=== PATIENT | male | born 1995 | race Caucasian/White ===

== ENCOUNTER 2016-10-23 18:34 | Emergency (ER) | payer BC, MEDICAID, MEDICARE ==
[2016-10-23 18:48] VITALS: BP 127/73
--- NOTE | 2016-10-23 19:02 | ED Physician Chart ---
Chief Complaint/HPI - Patient Information Date Seen:: 10/23/16 Time Seen:: 18:57 Chief Complaint:: anxiety History of Present Illness:: pt says he thinks he got himself worked up ..was upset after contemplating a mathematical equation for school(trying to reconcile arguments into math). he now feels anxious and feels heart rate elevated. no cp. no sob. no MCKEON. no neuro changes. he has felt tingly around face and hands. no weakness. no incoordination. pt admits he drank a red bull at 10am. he also says he smoked some mj earlier. denies other drug use. denies any obv reason for dehydration. denies etoh use. pt has had anxiety in past and thinks this is a panic attack but has not been fomally dxd w this. not on any meds. there is no personal or fam hx of congenital hrt dz. pt has allergy hx and asthma hx but no recent flare up. Allergies:: Allergies Allergy/AdvReac Type Severity Reaction Status Date / Time No Known Allergies Allergy Verified 10/23/16 18:48 Vitals:: Vital Signs - 8 hr 10/23/16 10/23/16 18:48 18:49 Temp 98.3 F HR 125 RR 17 BP 127/73 127/73 O2 Sat % 97 Historian:: Patient Review of Systems - Review of Systems General/Constitutional: No fever, No chills, No weight loss, No weakness, No diaphoresis, No edema, No loss of appetite Skin: No skin lesions, No rash, No bruising Head: No headache, No light-headedness Eyes: No loss of vision, No pain, No diplopia ENT: No earache, No nasal drainage, No sore throat, No tinnitus Neck: No neck pain, No swelling, No thyromegaly, No stiffness, No mass noted Cardio Vascular: No chest pain, Palpitations (rapid hrt rate), No PND, No orthopnea, No edema Pulmonary: No SOB, No cough, No sputum, No wheezing GI: No nausea, No vomiting, No diarrhea, No pain, No melena, No hematochezia, No constipation, No hematemesis G/U: No dysuria, No frequency, No hematuria Musculoskeletal: No bone or joint pain, No back pain, No muscle pain Endocrine: No polyuria, No polydipsia Psychiatric: No prior psych history, No depression, Anxiety, No suicidal ideation Hematopoietic: No bruising, No lymphadenopathy Allergic/Immuno: No urticaria, No angioedema Neurological: No syncope, No focal symptoms, No weakness, No paresthesia, No headache, No seizure, No dizziness, No confusion, No vertigo Past Medical History - Past Medical History Past Medical History: Asthma/COPD Social History: Illicit Drug Use (mj) Medication: None Family Medical History - Family Member Mother Hx Family Cancer: No Hx Family Congestive Heart Failure: No Hx Family Stroke: No Hx Family Diabetes: No Hx Family Seizures: No Hx Family HIV: No Hx Family Hepatitis: No Physical Exam - Physical Examination General/Constitutional: Awake, Well-developed, well-nourished, Alert, No distress, GCS 15, Non-toxic appearing, Ambulatory Other Gen/Cons comments:: pt seems anxious. no sob. nrml neuro status. electronic device monitor shows sinus tach w 115-130 rate. Head: Atraumatic Eyes: Lids, conjuctiva normal, PERRL, EOMI Skin: Nl inspection, No rash, No skin lesions, No ecchymosis, Well hydrated, No lymphadenopathy ENMT: External ears, nose nl, Nasal exam nl, Lips, teeth, gums nl Neck: Nontender, Full ROM w/o pain, No JVD, No nuchal rigidity, No bruit, No mass, No stridor Respiratory: Nl effort/Exclusion, Clear to Auscultation, No Wheeze/Rhonchi/Rales Cardio Vascular: RRR, No murmur, gallop, rubs, NL S1 S2 GI: No tenderness/rebounding/guarding, No organomegaly, No hernia, Normal BS's, Nondistended, No mass/bruits, No McBurney tenderness : No CVA tenderness Extremities: No tenderness or effusion, Full ROM, normal strength in all extremities, No edema, Normal digits & nails Neuro/Psych: Alert/oriented, DTR's symmetric, Normal sensory exam, Normal motor strength, Judgement/insight normal, Mood normal, Normal gait, No focal deficits Other Neuro/Psych comments:: nrml str/sens x 4 extr. cn 2-12 wnl. tm''s cl b. Misc: normal gait, Normal back, No paraspinal tenderness Labs/Radiology/EKG Results - Lab Results Results: Laboratory Tests 10/23/16 10/23/16 10/23/16 19:12 19:12 19:12 WBC 11.8 H RBC 5.51 Hgb 16.3 Hct 47.1 MCV 85.5 MCH 29.5 MCHC Differential 34.5 RDW 11.8 Plt Count 207 MPV 8.7 Neutrophils % 86.7 H Lymphocytes % 6.6 L Monocytes % 5.8 Eosinophils % 0.3 Basophils % 0.6 Sodium 137 Potassium 3.5 Chloride 103 Carbon Dioxide 25.3 Anion Gap 12.2 BUN 11 Creatinine 1.2 Est GFR ( Amer) > 60.0 Est GFR (Non-Af Amer) > 60.0 BUN/Creatinine Ratio 9.2 Glucose 139 H Calcium 9.7 Total Bilirubin 0.6 AST 23 ALT 33 Alkaline Phosphatase 50 Troponin I < 0.01 L Total Protein 7.6 Albumin 4.7 Globulin 2.9 Albumin/Globulin Ratio 1.6 Urine Opiates Screen Urine Methadone Screen Ur Barbiturates Screen Ur Tricyclics Screen Ur Phencyclidine Scrn Amphetamines Screen U Methamphetamines Scrn U Benzodiazepines Scrn U Cocaine Metab Screen U Cannabinoids Screen 10/23/16 19:25 WBC RBC Hgb Hct MCV MCH MCHC Differential RDW Plt Count MPV Neutrophils % Lymphocytes % Monocytes % Eosinophils % Basophils % Sodium Potassium Chloride Carbon Dioxide Anion Gap BUN Creatinine Est GFR ( Amer) Est GFR (Non-Af Amer) BUN/Creatinine Ratio Glucose Calcium Total Bilirubin AST ALT Alkaline Phosphatase Troponin I Total Protein Albumin Globulin Albumin/Globulin Ratio Urine Opiates Screen NEGATIVE Urine Methadone Screen NEGATIVE Ur Barbiturates Screen NEGATIVE Ur Tricyclics Screen NEGATIVE Ur Phencyclidine Scrn NEGATIVE Amphetamines Screen NEGATIVE U Methamphetamines Scrn NEGATIVE U Benzodiazepines Scrn NEGATIVE U Cocaine Metab Screen NEGATIVE U Cannabinoids Screen POSITIVE H - EKG Interpretations EKG Time:: 19:10 Rate & Rhythm: nsr- mild tachy at 108 bpm [place]: -47 Intervals: [id number] Comments:: overall mild tach w no obvious injury pattern ED Septic Shock - . Is Septic Shock (SBP<90, OR Lactate>4 mmol\L) present?: No - <6hrs of presentation: Vital Signs: Vital Signs - 8 hr 10/23/16 10/23/16 18:48 18:49 Temp 98.3 F HR 125 RR 17 BP 127/73 127/73 O2 Sat % 97 Reassessment (Disposition) - Reassessment Reassessment:: re-eval 2x..last at 8;30p w mom and brother present. pt feels well and states feels ok now and wants to go home. [id number] now. no ectopy on monitor. d/w pt and family about dc plan and fu w pmd in 1 day advised. return if worse. Reassessment Condition:: Improved - Diagnosis Diagnosis:: 1 anxiety/panic attack 2 palpitations - Aftercare/Follow up Instructions Aftercare/Follow-Up Instructions:: Counseled pt & family regarding lab results/ diagnosis & need follow up - Patient Disposition Discharge/Transfer:: Home Condition at Disposition:: Improved
[2016-10-23] MEDS: Sodium Chloride 0.9% 1,000 ML IV ONE (19:18)
[2016-10-23 19:25] LABS: % EOSINOPHILS 0.3 % (0.0-5.0); MEAN CORPUSCULAR HEMOGLOBIN 29.5 pg (26.0-30.0)
[2016-10-23 19:32] LABS: % BASOPHILS 0.6 % (0.0-2.0); % LYMPHOCYTES 6.6 % (20.0-50.0); % MONOCYTES 5.8 % (2.0-10.0); % NEUTROPHILS 86.7 % (40.0-80.0); HEMATOCRIT 47.1 % (39.0-49.0); HEMOGLOBIN 16.3 gm/dL (13.2-17.3); MEAN CELL VOLUME 85.5 fl (80-99); MEAN CORPUSCULAR HGB CONC 34.5 pg (28.0-36.0); MEAN PLATELET VOLUME 8.7 fl; NEUTROPHILE ABSOLUTE 10.2 Th/cmm (1.8-8.0); PLATELET COUNT 207 Th/cmm (150-400); RED BLOOD COUNT 5.51 Mil/cmm (4.30-5.70); RED CELL DISTRIBUTION WIDTH 11.8 % (11.5-20.0); WHITE BLOOD COUNT 11.8 Th/cmm (4.8-10.8)
[2016-10-23 19:35] LABS: ALB/GLOB RATIO 1.6 (1.0-1.8); ALKALINE PHOSPHATASE 50 U/L (34-104); ANION GAP 12.2 (7.0-16.0); BILIRUBIN,TOTAL 0.6 mg/dL (0.3-1.0); BUN - UREA NITROGEN 11 mg/dL (7-25); BUN/CREATININE RATIO 9.2; CALCIUM SERUM 9.7 mg/dL (8.6-10.3); CARBON DIOXIDE 25.3 mEq/L (21.0-31.0); CHLORIDE 103 mEq/L (98-107); CREATININE - SERUM 1.2 mg/dL (0.7-1.3); GLUCOSE 139 mg/dL (70-105); POTASSIUM SERUM 3.5 mEq/L (3.5-5.1); SGOT 23 U/L (13-39); SGPT/ALT 33 U/L (7-52); SODIUM SERUM 137 mEq/L (136-145)
[2016-10-23 20:03] LABS: AMPHETAMINE URINE NEGATIVE (NEGATIVE); BARBITURATES URINE NEGATIVE (NEGATIVE); METHADONE URINE NEGATIVE (NEGATIVE)
== END 2016-10-23 20:35 | disposition home or self-care (01) ==
LOC: ER 18:34
DX: F41.9 Anxiety disorder, unspecified (principal); R00.2 Palpitations; J45.909 Unspecified asthma, uncomplicated; J44.9 Chronic obstructive pulmonary disease, unspecified; Z88.1 Allergy status to other antibiotic agents
CPT/HCPCS: 36415-UA; 80053-TC; 84484-TC; 85025-TC; 93005; J7030; Z7502; Z7610